=== PATIENT | female | born 1965 | race Caucasian/White ===

== ENCOUNTER 2016-07-03 16:54 | Emergency (ER) ==
[2016-07-03 17:05] VITALS: BP 97/65
[2016-07-03] MEDS ORDERED: NORCO-5 PO ONE (17:09)
[2016-07-03] MEDS ORDERED: ZOFRAN ODT PO ONE (17:09)
--- NOTE | 2016-07-03 17:27 | PROVIDER DOCUMENTATION ---
HPI-Musculoskeletal Pain/Inj - GENERAL Chief Complaint: Extremity Injury Stated Complaint: WRIST INJURY Time Seen by Provider: 07/03/16 17:07 Source: patient - HX OF PRESENT ILLNESS-MUSKULOSKELTAL Nature of Presenting Problem: This pt presents today c complaints of L wrist pain after a FOOSH type injury s/ p trip. No head injury. No loss of motor function or sensation. There is pain and swelling. no other issues or complaints. Quality of Pain: reports: aching Severity in ED: moderate Onset/Duration: just prior to arrival Timing: still present Modifying Factors: improves with: movement, palpation Any recent injury?: Yes Similar Symptoms Previously?: No Recently seen or treated by another doctor?: No Review of Systems - Adult - REVIEW OF SYSTEMS - ADULT Constitutional: reports: no symptoms reported. denies: chills, fever Eyes: reports: no symptoms reported. denies: discharge, dry eyes Ears, Nose, Mouth & Throat: reports: no symptoms reported. denies: ear discharge, ear pain Cardiovascular: reports: no symptoms reported. denies: chest pain, edema Respiratory: reports: no symptoms reported. denies: chronic cough, cough Gastrointestinal: reports: no symptoms reported. denies: abdominal pain, hematemesis Genitourinary: reports: no symptoms reported. denies: dysuria, discharge Musculoskeletal: reports: bone pain, joint pain, joint swelling. denies: frequent leg cramps, muscle aches Integumentary: reports: no symptoms reported. denies: hives, hair loss Neurological: reports: no symptoms reported. denies: ataxia, dizziness/vertigo Psychiatric: reports: no symptoms reported. denies: anxiety, anti-depressant use Endocrine: reports: no symptoms reported Hematologic/Lymphatic: reports: no symptoms reported Allergic/Immunologic: reports: no symptoms reported All Other Systems: Reviewed and Negative Past History - Adult - PAST MEDICAL HISTORY-ADULT Review of Records: reports: Old Records Reviewed, Nursing Assessment Review, Medications Reviewed, Social history reviewed & non-contributory. Major Childhood Illnesses: reports: denies history Cardiovascular: reports: denies history Respiratory: reports: denies history Gastrointestinal: reports: denies history Obstetrical/Gynecological: reports: denies history Genitourinary: reports: denies history Musculoskeletal: reports: denies history Neurological: reports: denies history Endocrine/Immune: reports: denies history Other Conditions: reports: denies history Physical Exam-Injury Related - Physical Exam-Injury Related Initial Vital Signs Reviewed: Yes General Appearance: appears well, alert, no apparent distress Eyes: PERRL/EOMI, pink conjunctivae Head, Ears, Nose, Mouth & Throat: normocephalic/atraumatic, moist mucous membranes, normal ENT inspection Neck: non-tender, full range of motion, supple, normal inspection. negative: vertebral point tenderness Respiratory: chest non-tender, lungs clear, normal breath sounds, no pleuratic chest pain Cardiovascular: normal peripheral pulses, regular rate, rhythm Peripheral Pulses: radial (R): 2+, radial (L): 2+ Abdominal Exam: normal bowel sounds, non tender, soft Extremity: normal range of motion, normal gait, swelling, tenderness. negative : deformity, erythema, pulse deficit, pedal edema Integumentary: normal color, warm/dry, blanching Neurologic: grossly normal, no motor/sensory deficits. negative: facial droop, focal weakness, motor weakness, sensory deficit Progress - PLAN OF CARE/RESULTS Progress/Plan/Lab Results: Orders Category Date Time Status Arm Sling DIRECTED Care 07/03/16 17:23 Active OCL Splint DIRECTED Care 07/03/16 17:23 Active WRIST COMPLETE LEFT [RAD] Stat Exams 07/03/16 17:08 Taken Hydrocodone/APAP 5 mg/325 mg [[place]-5] Med 07/03/16 17:09 Discontinued 1 each PO NOW ONE Ondansetron Odt [Zofran Odt] Med 07/03/16 17:09 Discontinued 4 mg PO NOW ONE Vital Signs Temp Pulse Resp BP Pulse Ox 07/03/16 17:03 98.0 F 67 18 97/65 100 sulfamethoxazole [From Bactrim] Allergy (Verified 01/13/16 20:37) Unknown trimethoprim [From Bactrim] Allergy (Verified 01/13/16 20:37) Unknown Esomeprazole [Nexium] 40 mg PO DAILY 01/13/16 Famotidine [Pepcid] 20 mg PO DAILY #20 tablet 01/13/16 Ibuprofen [Motrin] 800 mg PO Q8H PRN PRN #30 tablet 01/13/16 Will have pt f/u c ortho. - XRAY 1 XRAY: Left XRAY Study: Wrist XRAY Interpretation: distal radius fx Procedures - SPLINTING Left Upper Extremity Other Location: wrist Pre-Procedure Neurovascular Exam: Intact Splint Application (Hand-Made): Sugar-Tong Applied By: ux information architect Assisted By: Mid-level Post Procedure Neurovascular Exam: Intact Departure - Departure Time of Disposition Order: 17:26 DIAGNOSIS: Distal radius fracture, left Qualifiers: Encounter type: initial encounter Fracture type: closed Fracture morphology: Collemegan' Qualified Code(s): S52.532A - Colles' fracture of left radius, initial encounter for closed fracture Disposition: HOME 01 Certified Medical Emergency: Emergent Condition: Good Additional Instructions: Take medication as prescribed. Rest and elevate. Follow up with an orthopedist. ED Follow Up Instructions: You have been treated by a care provider in the Emergency Department. These instructions are being provided to you so you can have an understanding of how to care for yourself upon discharge. Upon discharge from the Emergency Department, you are responsible for making arrangements for follow-up care by a physician of your choice. Take all prescribed medications as directed. Return to the Emergency Department immediately for any new or worsening symptoms. You may call the Physician Referral phone number at [phone] to obtain a list of Physicians who are taking new patients. Prescriptions: Hydrocodone/APAP 7.5 mg/325 mg [[place]-7.5] 1 each PO Q6H PRN PRN #12 tablet PRN Reason: Pain Ondansetron HCl [Zofran] 4 mg PO Q4H PRN PRN #14 tablet PRN Reason: Nausea Referrals: Liseth Teixeira [Primary Care Provider] - Prudence Mathews MD [STAFF PHYSICIAN] - Attestation - Physician/ MARIANNA Attestation Patient care was provided by Advanced Practice Provider:: Yes Advanced Practice Provider:: Charlie Ray Advanced Practice Provider documentation review:: The Mid-level provider documentation, treatment plan and medical decision making was reviewed by the physician who agrees with all treatment and medical decision making by the MLP.
--- NOTE | 2016-07-03 18:43 | Diag Imaging Result Document ---
PROCEDURE NAME: WRIST COMPLETE LEFT - 07/03/2016 LEFT WRIST, 3 VIEWS: There is a transverse fracture through the distal radius with mild compaction. Very little angulation. No fracture to the distal ulna. IMPRESSION: Transverse compacted fracture to the distal radius.
== END 2016-07-03 18:32 | disposition home or self-care (01) ==
LOC: ED 16:54
DX: S52.532A Colles' fracture of left radius, initial encounter for closed fracture (principal); M25.532 Pain in left wrist; M25.432 Effusion, left wrist; W08.XXXA Fall from other furniture, initial encounter
CPT/HCPCS: 99284